=== PATIENT | female | born 1980 | race Caucasian/White ===

== ENCOUNTER 2023-05-05 00:25 | Day surgery (SDC) | payer OTHER, SELFPAY ==
[2023-04-27 13:02] VITALS: BMI 50.1
--- NOTE | 2023-04-27 13:09 | SUR.PREOP ---
Report to the Outpatient Waiting Room, entrance under the green pavilion located off [facility], at time 0600 on date 05/05/23. Planned Procedure Time: 0730 . Time changes happen often and if your time is changed the preop area will call you the afternoon before. - You and your visitor will be asked to self-screen and do not enter if you have any COVID symptoms. - A mask is optional within the hospital at this time. Patients may have clear liquids (water, carbonated beverages, clear teas, apple juice) until 3 hours prior to surgery with a maximum of 20 ounces. - No food from midnight until time of surgery BEFORE 0430 AM - Infants may have breast milk until 4 hours before surgery, infant formula 6 hours prior to surgery. - Children will be allowed to drink immediately following surgery. If applicable, please bring a bottle or sippy cup to assist with drinking. Juice, water, soda, and popsicles are readily available. For infants on formula, please bring formula the day of surgery. Pacifiers are allowed. Take the following medications with a SIP of water the morning of surgery: AMLODIPINE, FLUOXETINE, LEVOTHYROXINE, PROPRANOLOL DO NOT STOP ANY OF YOUR OTHER PRESCRIPTION MEDICATIONS PRIOR TO SURGERY ?EXCEPT THE FOLLOWING Medications to discontinue per physician ___ATORVASTATIN, LISINOPRIL/HCTZ, OMEPRAZOLE HOLD DAY OF SURGERY Date to take last dose Please no make-up, nail panamanian, hairspray, perfume, deodorant, or body powder the day of surgery. No jewelry (including any body piercings) or valuables the day of surgery, leave them at home. Please take a shower or bath the night before, or the morning of, surgery with an antibacterial soap. Wear comfortable, loose fitting clothing. Children are encouraged to wear pajamas. - Jewelry must be removed prior to entering the operating room. Rings and piercings that are not removed may be cut off. - The hospital will not accept responsibility for valuables. - Please leave all valuables, including medications, at home the day of surgery. If you are going home after surgery, a licensed racing car driver must drive you home. - NO public transportation without another adult if you receive anesthesia. - We recommend that an adult stay with you for 24 hours following discharge. - We also recommend that you do not drive, make important decision, drink alcoholic beverages, or take any drugs that were not prescribed by your health care provider for at least 24 hours after your discharge time. For Pediatric surgeries, we recommend two adults accompany the child home. Follow any additional instructions given to you from your surgeon. If you or anyone in your household have experienced Covid symptoms in the past week, please notify your surgeon or the nurse liaison at the phone number below for possible testing. Telephone instructions given to __PATIENT___and asked if any additional questions and then verbalized understanding. Patient advised to call surgeon office or pre surgery nurse liaison [phone] if any additional questions.
--- NOTE | 2023-05-04 11:00 | PM.IMHP ---
H&P: [facility] History of Present Illness Date/Time: 05/04/23 11:00 42-year-old female 2 para 2001 presents for evaluation of irregular vaginal bleeding and ultrasound abnormality. Was initially seen with normal flow and normal cycles until 1 year ago when she began to bleed quite heavily and December and since that time had bled fairly consistently until just recently. She is not on any type of control and cycles have been without issue during that time. Ultrasound was performed reveals enlarged uterus with a 15mm endometrial cavity. Ovaries did not appear with any significant abnormalities. Multiple long-term options have been discussed for therapy, based upon findings of hysteroscopic exam as well as tissue sample. Chief Complaint: Irregular vaginal bleeding with endometrial hypertrophy. Review of Systems Review of Systems: All systems reviewed & are unremarkable except as noted in HPI and below PMFSH Past Medical History Medical History (Updated 05/04/23 @ 11:03 by Pedrito Conn MD) Hypertension Hyperthyroidism Migraines Nerve damage PCOS (polycystic ovarian syndrome) Surgical History Surgical History (Updated 03/30/23 @ 14:51 by FRANK Armenta) Delivery by section (12/18/13) Delivery by section (08/26/15) History of orthopedic surgery (~2007) cyst removed from left ankle Benign Hx of cholecystectomy (~2017) Hx of laparoscopic gastric banding (~2010) S/P left knee arthroscopy (~1994) Family History Family History (Updated 03/30/23 @ 14:53 by FRANK Armenta) Father Acute myocardial infarction Heart disease Hypertension Mother Diabetes mellitus Hypertension Grandparent Diabetes mellitus maternal grandmother Brain cancer maternal grandfather Social History Social History (Updated 03/30/23 @ 14:54 by FRANK Armenta) Smoking status: Never smoker Tobacco type: cigarettes Smoking end date: 02/21/13 Alcohol intake: never Substance use: never Substance use type: does not use Do You Feel Safe in your Home?: Yes Lack of Transportation: No Lack of Food: Never True Current Housing: I Have Housing Concerned About Future Housing: No Difficulty Paying Gas/Electric Bills: No Difficulty Paying for Meds: No Currently Unemployed: No Education: Trade/Vocational Certificate Difficulty w/ Childcare or Family Care: No Living arrangements: with family Additional living arrangements comments: Occupation/Education: other Additional occupation/education comments: stay at home mom Gender identity (if verbalized by the patient): Female Sexual Orientation (if Verbalized by the Patient): Straight or Heterosexual Meds Home Medications and Allergies Home Medications Medication Instructions Recorded Confirmed Type amlodipine 5 mg tablet 5 mg PO DAILY 03/30/23 04/27/23 History atorvastatin 20 mg tablet 20 mg PO DAILY 03/30/23 04/27/23 History fluoxetine 20 mg tablet 20 mg PO DAILY 03/30/23 04/27/23 History levothyroxine 25 mcg capsule 25 mcg PO DAILY 03/30/23 04/27/23 History lisinopril 20 1 tablet PO DAILY 03/30/23 04/27/23 History mg-hydrochlorothiazide 12.5 mg tablet omeprazole 20 mg capsule,delayed 20 mg PO DAILY 03/30/23 04/27/23 History release propranolol 20 mg tablet 20 mg PO Q12H 03/30/23 04/27/23 History Allergies Allergy/AdvReac Type Severity Reaction Status Date / Time Sulfa (Sulfonamide Allergy Mild Rash Verified 03/30/23 14:42 Antibiotics) NSAIDS (Non-Steroidal AdvReac Unknown Unknown Verified 03/30/23 14:42 Anti-Inflamma Exam Const: General: cooperative, healthy appearing and comfortable Resp: Effort & Inspection: normal respiratory effort Auscultation: clear to auscultation bilaterally Cardio: Rate: regular rate Rhythm: regular rhythm GI: Inspection: normal to inspection Auscultation: normal bowel sounds : External Female Exam: norm
--- NOTE | 2023-05-04 12:14 | WPDANESEPPF ---
Anes - Initial Pre Proc Eval Procedure: Operation Date: 05/05/23 08:30 Proposed Procedures p Hysteroscopy Dilation and Curettage - Pedrito Conn MD Date/Time: 05/04/23 12:14 Surgeon: Pedrito Conn MD Pre Op Diagnosis: Abnormal Uterine Bleeding Patient Data Age: 42 Gender: F Height: 1.57 m Weight: 124.3 kg Allergies Allergy/AdvReac Type Severity Reaction Status Date / Time Sulfa (Sulfonamide Allergy Mild Rash Verified 05/05/23 07:42 Antibiotics) NSAIDS (Non-Steroidal AdvReac Unknown Unknown Verified 05/05/23 07:42 Anti-Inflamma Home Medications Medication Instructions Recorded Confirmed Type amlodipine 5 mg tablet 5 mg PO DAILY 03/30/23 05/05/23 History atorvastatin 20 mg tablet 20 mg PO DAILY 03/30/23 04/27/23 History fluoxetine 20 mg tablet 20 mg PO DAILY 03/30/23 04/27/23 History levothyroxine 25 mcg capsule 25 mcg PO DAILY 03/30/23 04/27/23 History lisinopril 20 1 tablet PO DAILY 03/30/23 05/05/23 History mg-hydrochlorothiazide 12.5 mg tablet omeprazole 20 mg capsule,delayed 20 mg PO DAILY 03/30/23 04/27/23 History release propranolol 20 mg tablet 20 mg PO Q12H 03/30/23 04/27/23 History Patient hx anesthesia problems: none Family hx anesthesia problems: none Results Review: All pre-operative results and documents have been reviewed as part of the pre-operative evaluation. [facility] Past Medical History Medical History (Updated 05/05/23 @ 06:35 by Fortunato Cruz DO) Anxiety GERD (gastroesophageal reflux disease) Hypertension Hypothyroidism Migraines Nerve damage PCOS (polycystic ovarian syndrome) Surgical History Surgical History (Updated 03/30/23 @ 14:51 by FRANK Armenta) Delivery by section (12/18/13) Delivery by section (08/26/15) History of orthopedic surgery (~2007) cyst removed from left ankle Benign Hx of cholecystectomy (~2017) Hx of laparoscopic gastric banding (~2010) S/P left knee arthroscopy (~1994) Family History Family History (Updated 03/30/23 @ 14:53 by FRANK Armenta) Father Acute myocardial infarction Heart disease Hypertension Mother Diabetes mellitus Hypertension Grandparent Diabetes mellitus maternal grandmother Brain cancer maternal grandfather Social History Social History (Updated 03/30/23 @ 14:54 by Amarilis Muhammad [facility]) Smoking status: Never smoker Tobacco type: cigarettes Smoking end date: 02/21/13 Alcohol intake: never Substance use: never Substance use type: does not use Do You Feel Safe in your Home?: Yes Lack of Transportation: No Lack of Food: Never True Current Housing: I Have Housing Concerned About Future Housing: No Difficulty Paying Gas/Electric Bills: No Difficulty Paying for Meds: No Currently Unemployed: No Education: Trade/Vocational Certificate Difficulty w/ Childcare or Family Care: No Living arrangements: with family Additional living arrangements comments: Occupation/Education: other Additional occupation/education comments: stay at home mom Gender identity (if verbalized by the patient): Female Sexual Orientation (if Verbalized by the Patient): Straight or Heterosexual Anes - Eval Final PreProcedure Day of Procedure 05/04/23 12:14 Patient weight: super morbidly obese Heart: regular rate and rhythm Lungs: clear to auscultation Airway: Mallampati scale class II Neurological: alert and oriented Last oral intake: >/= 8 hours ASA classification: III Emergent: no Anesthetic plan: proceed Anesthesia type and monitoring: general GIVS and LMA and standard monitoring Results Review: All pre-operative results and documents have been reviewed as part of the pre-operative evaluation. Informed Consent: The patient's anesthetic plan and its attendant risks and benefits were discussed with the patient/family/POA. Questions were solicited and answers provided to the satisfaction
[2023-05-05 06:47] VITALS: BMI 53.8
[2023-05-05 06:48] VITALS: BP 172/90; PULSE 104; RESP 16; TEMP 36.2; O2SAT 97
[2023-05-05] MEDS: LACTATED RINGERS 1,000 ML 30 ML IV CONT (07:15)
--- NOTE | 2023-05-05 07:20 | WPDHPUPDATE1 ---
History and Physical Update Update Date/Time: 05/05/23 07:20 History and Physical has been reviewed, including an updated exam of the patient. There are NO changes in the patient's condition. Risks, benefits, and alternatives have been discussed and questions answered. Patient agrees to proceed with procedure.
[2023-05-05] MEDS: ACETAMINOPHEN 500 MG TABLET 1000 MG PO (07:24)
[2023-05-05 07:36] LABS: Anion Gap 8 mmol/L (8-16); Blood Urea Nitrogen 14 mg/dL (7-17); Carbon Dioxide 22 mmol/L (22-30); Chloride 106 mmol/L (98-107); Estimated CRCL calculation 99 ml/min; Estimated Glomerular Filt Rate > 60; Glucose 115 mg/dL (65-110); Potassium 3.8 mmol/L (3.4-5.0); Sodium 136 mmol/L (137-145)
[2023-05-05 07:37] LABS: Hematocrit 33.4 % (37.0-47.0); Hemoglobin 9.6 g/dL (12.0-15.0); Mean Corpuscular HGB Conc 28.7 g/dl (32-36); Mean Corpuscular Hemoglobin 23.2 pg (26-34); Mean Corpuscular Volume 80.7 fl (80-100); Mean Platelet Volume 9.4 fl (7.4-10.4); Platelet Count Result 388 k/mm3 (150-375); Red Blood Count 4.14 M/mm3 (4.2-5.4); White Blood Count 5.6 K/mm3 (4.5-10.0)
[2023-05-05 08:32] VITALS: BP 112/61; PULSE 93; RESP 16; O2SAT 93
--- NOTE | 2023-05-05 08:58 | W.PM.PROC2 ---
Procedure Note - Detailed Date of Procedure 05/05/23 Pre-op Diagnosis 1. Irregular vaginal bleeding 2. Endometrial thickening on ultrasound Post-op Diagnosis Same Procedure Performed 1. Hysteroscopy with uterine curettings Surgeon Pedrito Conn MD Anesthesia MAC Findings Hysteroscopic exam revealed thickened tissue throughout, no specific or fibroids. Description of Procedure Patient prepped and draped usual manner for this procedure. Cervix was dilated to allow the hysteroscope to be placed which did reveal findings as noted above. Curettings were removed moderate amount tissue, there was minimal bleeding. This point the procedure was considered terminated and patient sent to recovery room in stable condition. Drains No Packing No Pathology Yes Complications No immediate complications Condition Stable Disposition PACU [facility] Billing Surgery - Charge Forward: Surgery Billing
[2023-05-05 09:00] VITALS: BP 117/68; PULSE 81; RESP 16; O2SAT 95
[2023-05-05] MEDS: oxyCODONE HCL (*CRX) 5 MG TAB IR PO (09:12)
[2023-05-05 09:30] VITALS: BP 112/55; PULSE 75; RESP 16
== END 2023-05-05 09:42 | disposition home or self-care (01) ==
PROVIDERS: Anesthesiology; PCP Nurse Practitioner; Visit Provider Obstetrics & Gynecology
PROC: 0U5B8ZZ Destruction of Endometrium, Via Natural or Artificial Opening Endoscopic (ICD-10-PCS; CPT 58563; principal; 2023-05-05 08:30)
DX: R93.89 Abnormal findings on diagnostic imaging of other specified body structures (principal); I10 Essential (primary) hypertension; F41.9 Anxiety disorder, unspecified; E03.9 Hypothyroidism, unspecified; K21.9 Gastro-esophageal reflux disease without esophagitis; E28.2 Polycystic ovarian syndrome; G43.909 Migraine, unspecified, not intractable, without status migrainosus; E66.01 Morbid (severe) obesity due to excess calories; Z68.43 Body mass index [BMI] 50.0-59.9, adult; Z98.890 Other specified postprocedural states; Z90.49 Acquired absence of other specified parts of digestive tract; Z98.84 Bariatric surgery status; Z82.49 Family history of ischemic heart disease and other diseases of the circulatory system; Z80.8 Family history of malignant neoplasm of other organs or systems
CPT/HCPCS: 58558; 36415; 80048; 85027; 88305; A9270; J2250; J2704; J3010; J7120